=== PATIENT | female | born 1970 | race African-American/Black ===

== ENCOUNTER 2019-05-10 08:06 | Emergency (ER) | payer OTHER, MEDICAID ==
[2019-05-10] MEDS ORDERED: IBUPROFEN 600 MG TABLET PO ONE (10:33)
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
--- NOTE | 2019-05-10 11:23 | RADIOLOGY REPORT (SQ) ---
EXAM DESCRIPTION: L SPINE WHOLE COMPLETED DATE/TIME: 05/10/2019 10:58 am REASON FOR STUDY: back pain COMPARISON: None. NUMBER OF VIEWS: Five views including obliques. TECHNIQUE: AP, lateral, oblique, and sacral radiographic images acquired of the lumbar spine. LIMITATIONS: None. FINDINGS: MINERALIZATION: Normal. SEGMENTATION: Transitional anatomy, S1 has a large transverse process articulating with the remainder the sacrum. Well-developed S1-2 disc space. Disc space narrowing and anterior osteophyte formation at L2-3. ALIGNMENT: Normal. VERTEBRAE: Maintained height. No fracture or worrisome bone lesion. DISCS: Preserved height. No significant osteophytes or end plate irregularity. POSTERIOR ELEMENTS: Pedicles and facets are intact. No pars defect or posterior arch defects. Lower lumbar facet arthropathy HARDWARE: None in the spine. PARASPINAL SOFT TISSUES: Normal. PELVIS: SI joints intact. OTHER: No other significant finding. IMPRESSION: Small disc space between S1 and S2. Lower lumbar facet arthropathy TECHNICAL DOCUMENTATION: JOB ID: [id number] [email or web address]- All Rights Reserved Reading location - IP/workstation name: [email or web address]
[2019-05-10 12:24] VITALS: BP 130/82
--- NOTE | 2019-05-10 12:35 | EKG REPORT ---
SEVERITY:- NORMAL ECG - SINUS RHYTHM : Confirmed by: Huseyin Chauhan 10-May-2019 12:35:05
== END 2019-05-10 12:24 | disposition home or self-care (01) ==
LOC: ER 08:06
DX: S39.012A Strain of muscle, fascia and tendon of lower back, initial encounter (principal); R51 Headache; R07.9 Chest pain, unspecified; M79.10 Myalgia, unspecified site; V49.40XA Driver injured in collision with unspecified motor vehicles in traffic accident, initial encounter
CPT/HCPCS: 71046; 72110; 93005; 93010; 99283